=== PATIENT | female | born 1955 | race Caucasian/White ===

== ENCOUNTER 2017-08-17 15:11 | Inpatient (IN) | payer OTHER ==
[~2017-08-17] VITALS: Ht 165.1 cm; Wt 74.1 kg
[2017-08-17] VITALS (10 sets, daily range): BP systolic 110–162; BP diastolic 59–80; PULSE 89–100; RESP 10–18; Ht 165.1 cm; Wt 74.1 kg
[2017-08-17] MEDS: AMLODIPINE 5 MG TAB PO SCH (01:00)
[2017-08-17] MEDS: SENNA/DOCUSATE NA (8.6MG/50MG) TAB PO SCH (01:00)
[2017-08-17] MEDS: ATORVASTATIN 10 MG TAB PO SCH (01:00)
[~2017-08-17 15:11] MED LIST: ATROPINE 1 MG/10 ML SYRINGE IV PRN; DIPHENHYDRAMINE 50 MG INJ IV PRN; EPHEDrine SULFATE 50 MG/5 ML SYG IV PRN; FENTAnyl 50 MCG/ML VIAL IV PRN; HYDROmorphONE (0.2 MG/ML) 10ML SYG IV PRN; LABETALOL HCL 20MG INJ IV PRN; MEPERIDINE 25 MG INJ IV PRN; MIDAZOLAM 1 MG/ML 2 ML INJ IV PRN; ONDANSETRON 4 MG INJ IV PRN; OXYCODONE/ACETAMINOPHEN (5/325) TAB PO PRN; hydrALAzine 20 MG INJ IV PRN; morphine (1 MG/ML) 10ML SYRINGE IV PRN
[2017-08-17] MEDS ORDERED: MILN50TA PO (15:37)
[2017-08-17] MEDS ORDERED: METF1000 PO (15:37)
[2017-08-17] MEDS ORDERED: AMLO5TAB4 PO (15:37)
[2017-08-17] MEDS ORDERED: ATOR10TA65 PO (15:38)
[2017-08-17] MEDS ORDERED: CLON-379 PO (15:38)
[2017-08-17] MEDS ORDERED: OLAN5TAB5 PO (15:39)
[2017-08-17] MEDS ORDERED: TOPI50TA86 PO (15:39)
[2017-08-17] MEDS ORDERED: CLON-412 PO (15:40)
[2017-08-17] MEDS ORDERED: ZOLP10TA5 PO (15:40)
[2017-08-17] MEDS ORDERED: GELATIN SIZE 100 SPONGE ONE (16:31)
[2017-08-17] MEDS ORDERED: THROMBIN 5000 UNIT VIAL ONE (16:31)
[2017-08-17] MEDS ORDERED: CEFAZOLIN 1 GM INJ ONE ×2 (16:31→18:26)
[2017-08-17] MEDS ORDERED: HEPARIN 1000 UNITS/ML 10 ML INJ ONE (16:52)
--- NOTE | 2017-08-17 18:13 | HPN ---
Date/Time of Note Date/Time of Note DATE: 08/17/17 TIME: 18:13 Interval H&P Admission Note Pt. seen H&P reviewed: No system changes ENZO CARDOSO MD Aug 17, 2017 18:13
[2017-08-17] MEDS ORDERED: ROCURONIUM 50 MG INJ ONE (18:26)
[2017-08-17] MEDS ORDERED: NEOSTIGMINE 3 MG/3 ML SYRINGE ONE (18:26)
[2017-08-17] MEDS ORDERED: GLYCOPYRROLATE 0.4 MG INJ ONE (18:26)
[2017-08-17] MEDS ORDERED: MIDAZOLAM 1 MG/ML 2 ML INJ ONE (18:26)
[2017-08-17] MEDS ORDERED: ONDANSETRON 4 MG INJ ONE (18:26)
[2017-08-17] MEDS ORDERED: FENTAnyl 50 MCG/ML VIAL ONE ×4 (18:26→23:08)
[2017-08-17] MEDS ORDERED: PROPOFOL 20 ML ONE (18:26)
[2017-08-17] MEDS ORDERED: DEXAMETHASONE 4 MG/ML 1 ML INJ ONE (18:26)
[2017-08-17] MEDS ORDERED: clonAZEPAM 0.5 MG TAB PO PRN (18:30)
--- NOTE | 2017-08-17 18:32 | RADRPT ---
PROCEDURE: Portable chest x-ray. CLINICAL INDICATION: Preoperative chest x-ray. TECHNIQUE: Portable AP view of the chest. COMPARISON: None. FINDINGS: No pulmonary edema or conolidation is identified. The cardiac silhouette is magnified. There are ao rtic calcifications. No pleural effusion is seen. There is no pneumothorax. IMPRESSION: 1. No evidence of acute cardiopulmonary disease. 2. Aortic atherosclerosis. RPTAT: HTAR .Solo Gan MD, MD Date Time Electronically viewed and signed by .Solo Gan MD, on 08/17/2017 18:32 .R/
--- NOTE | 2017-08-17 19:19 | HP ---
Date/Time of Note Date/Time of Note DATE: 08/17/17 TIME: 19:16 Assessment/Plan VTE Prophylaxis VTE Prophylaxis Intervention: ambulation, anti-embolic stocking Lines/Catheters IV Catheter Type (from Nrsg): [place] line still needed: No Urinary Cath still in place: No Assessment/Plan Problems: (1) Lumbar stenosis with neurogenic claudication Status: Acute Comment: She went for elective laminectomy today by Dr. Gentile She is low risk for cardiac event perioperatively. (2) HTN (hypertension) Status: Chronic Comment: IV hydralazine for SBP>160 or DBP>110 home BP meds resumed Qualifiers: Hypertension type: essential hypertension Qualified Code: I10 - Essential hypertension (3) DM type 2 with diabetic dyslipidemia Status: Chronic Comment: Insulin sliding scale HbA1C repeated (4) Bipolar 1 disorder Status: Chronic Comment: Zyprexa resumed. Ativan given as needed (5) OA (osteoarthritis of the spine) Status: Chronic Comment: Pain management after surgery Qualifiers: Spinal region: lumbosacral (6) OA (osteoarthritis) of knee Status: Chronic Comment: PT/OT evaluation and treatment Qualifiers: Osteoarthritis type: primary Laterality: bilateral Qualified Code: M17.0 - Primary osteoarthritis of both knees HPI/ROS Admit Date/Time Admit Date/Time Aug 17, 2017 at 15:11 Hx of Present Illness This is a 61 years old [place] lady with significant medical illness of hypertension,type 2 diabetic mellitus with dyslipidemia,bipolar disorder , severe lumbar stenosis with significant claudication who was sent here today for elective anterior approach laminectomy . The back pain was radiated to both side of lower extremities. It was so severe that medication was not able to relieve the pain.. She has been in her usual status of melani. She denied any chest pain nor short of breath. No PND nor orthopnea. No abdominal pain nor N/ V. No headache nor blurred vision. No leg/arm weakness . No leg/arm numbness. No dysuria. ROS Constitutional: No chills, No diaphoresis, No disoriented, No fatigue, No febrile, No improved, No nausea, No other, No poor po, No weight change Eyes: No discharge, No other, No pain, No redness, No visual change ENT: No bleeding, No congestion, No discharge, No dysphagia, No no complaints, No other, No pain, No sore throat Respiratory: No cough, No no complaints, No other, No pain, No pleuritic pain, No shortness of breath, No sputum, No wheezing Cardiovascular: No chest pain, No edema, No lightheadedness, No no complaints, No orthopenea, No other, No palpitations, No paroxysmal nocturnal dyspnea Gastrointestinal: No blood, No constipation, No decreased appetite, No diarrhea , No flatus, No nausea, No no complaints, No other, No pain, No passing stool, No vomiting Genitourinary: No bleeding, No discharge, No dysuria, No flank pain, No hematuria, No no complaints, No other Musculoskeletal: back pain, restricted range of motion (of lumbarspine Strainght leg rasing test positive) Skin: No bruising, No erythema, No laceration, No no complaints, No other, No pruritis, No rash, No skin lesions Neurologic: No confusion, No dizziness, No focal-weakness, No headache, No no complaints, No other, No seizure, No syncope Endocrine: No dry skin, No no complaints, No other, No polydypsia, No polyuria , No temp intolerance, No weight change Lymphatic: No adenopathy, No lymphadema, No no complaints, No other, No tender nodes Psychological: No anxiety, No confusion, No depression, No nl mood/affect, No no complaints, No other, No suicidal Immunologic: No immunodeficiency, No no complaints, No other, No pruritis, No rhinitis, No urticaria PMH/Family/Social Past Medical History Medical History: diabetes (type 2 DM with dsylipidemia), hypertension, other ( OA of lumbar spine/knee,Bipolar disorder) Past Surgical History Past Surgical Hx: other (C Section twice, D&C) Family History Significant Family History: no pertinent family hx Social History Alcohol Use: none Smoking Status: Never smoker Drug Use: none Exam/Review of Systems Vital Signs Vitals Vital Signs Date Time Temp Pulse Resp B/P Pulse Ox O2 Delivery O2 Flow Rate FiO2 08/17/17 16:07 98.3 90 18 162/80 98 Room Air Exam Constitutional: alert, oriented, well developed, No distress, No frail, No non-verbal, No other Psych: nl mood/affect, No anxiety, No confusion, No depression, No no complaints, No other, No suicidal Head: atraumatic, normocephalic, No hematomas, No lacerations, No other Eyes: EOMI, nl conjunctiva, nl lids, nl sclera ENMT: mucosa pink and moist, nl external ears & nose, nl lips & teeth, nl nasal mucosa & septum Neck: non-tender, supple, No bruits, No jvd, No masses, No nuchal rigidity, No other, No thyromegaly Respiratory: clear to auscultation, normal air movement, No congested cough, No crackles/rales, No diminished breath sounds, No intercostal retraction, No labored breathing, No other, No respirations, No tactile fremitus, No wheezing Cardiovascular: nl pulses, regular rate and rhythm, No S3, No S4, No bruits, No diastolic murmur, No edema, No gallop, No irregular rhythm, No jugular venous distention (JVD), No murmurs/extra sounds, No other, No rub, No systolic murmur Gastrointestinal: nl liver, spleen, non-tender, soft, No ascites, No bowel sounds, No distended, No firm, No hepatomegaly, No mass , No other, No rebound or guarding, No splenomegaly, No surgical scars, No tender Musculoskeletal: nl extremities to inspection, nl gait and stance, range of motion (limitation of lumbar spine) Extremities: No calf tenderness, No clubbing, No cyanosis, No edema, No normal pulses, No other, No palpable cord, No pitting pedal edema, No tenderness Neurological: QUALITY IMPROVEMENT SPECIALIST II-XII intact, nl mental status, nl speech, nl strength, No DTR's symmetric, No confused, No focal weakness, No lethargic, No numbness , No other, No reflexes, No unresponsive Skin: nl turgor, rash or lesions, No diaphoresis, No ecchymosis, No laceration, No other, No puncture Lymph: nl lymph nodes, No enlarged, No nontender, No other Medications Medications Current Medications Amlodipine Besylate (Norvasc) 5 mg DAILY PO ; Start 08/18/17 at 09:00 Atorvastatin Calcium (Lipitor) 10 mg QHS PO ; Start 08/17/17 at 21:00 Olanzapine (Zyprexa) 5 mg QHS PO ; Start 08/17/17 at 21:00 Topiramate (Topamax) 50 mg QHS PO ; Start 08/17/17 at 21:00 Copies To: CC: BERE GALEANA NARUCHON MD Aug 17, 2017 19:19
[2017-08-17] MEDS ORDERED: hydrALAzine 20 MG INJ IV PRN ×2 (20:00→20:30)
[2017-08-17] MEDS ORDERED: GLUCOSE GEL 15 GRAM TUBE PO PRN ×2 (20:00)
[2017-08-17] MEDS ORDERED: GLUCOSE GEL 15 GRAM TUBE BUCCAL PRN (20:00)
[2017-08-17] MEDS ORDERED: MAGNESIUM HYDROXIDE 30ML CUP PO PRN (20:00)
[2017-08-17] MEDS ORDERED: GLUCAGON 1 MG INJ IM PRN (20:00)
[2017-08-17] MEDS ORDERED: DEXTROSE 50% 50 ML SYRINGE IV PRN ×2 (20:00)
[2017-08-17] MEDS ORDERED: hydrALAzine 20 MG INJ ONE (20:18)
[2017-08-17] MEDS ORDERED: LABETALOL HCL 20MG INJ ONE (20:29)
[2017-08-17] MEDS ORDERED: ALBUTEROL 0.083% (NEB) 2.5 MG/3 ML AMP HHN PRN (20:30)
[2017-08-17] MEDS ORDERED: TRIMETHOBENZAMIDE 100 MG/ML VIAL IM PRN (20:30)
[2017-08-17] MEDS ORDERED: MEPERIDINE 25 MG INJ IV PRN (20:30)
[2017-08-17] MEDS ORDERED: IPRATROPIUM (NEB) 0.5 MG/2.5 ML AMP HHN PRN (20:30)
[2017-08-17] MEDS ORDERED: HYDROmorphONE (0.2 MG/ML) 10ML SYG IV PRN ×2 (20:30)
[2017-08-17] MEDS ORDERED: OXYCODONE/ACETAMINOPHEN (5/325) TAB PO PRN ×2 (20:30)
[2017-08-17] MEDS ORDERED: LABETALOL HCL 20MG INJ IV PRN (20:30)
[2017-08-17] MEDS ORDERED: FENTAnyl 50 MCG/ML VIAL IV PRN ×3 (20:30)
[2017-08-17] MEDS ORDERED: MIDAZOLAM 1 MG/ML 2 ML INJ IV PRN (20:30)
[2017-08-17] MEDS ORDERED: DIPHENHYDRAMINE 50 MG INJ IV PRN (20:30)
[2017-08-17] MEDS ORDERED: ONDANSETRON 4 MG INJ IV PRN ×2 (20:30→23:00)
[2017-08-17] MEDS ORDERED: EPHEDrine SULFATE 50 MG/5 ML SYG IV PRN (20:30)
[2017-08-17] MEDS ORDERED: THROMBIN 5000 UNIT VIAL TOP ONE (20:47)
[2017-08-17] MEDS ORDERED: GELATIN SIZE 100 SPONGE TOP ONE (20:47)
[2017-08-17] MEDS ORDERED: OLANZAPINE 5 MG TAB PO SCH (21:00)
[2017-08-17] MEDS ORDERED: TOPIRAMATE 25 MG TAB PO SCH (21:00)
[2017-08-17] MEDS ORDERED: HEMOSTATIC MATRIX/ THROMBIN 1 EA SYG ZFS ONE ×2 (21:40→22:00)
[2017-08-17] MEDS ORDERED: SUGAMMADEX SODIUM 200 MG/2 ML VIAL IV ONE (22:25)
--- NOTE | 2017-08-17 22:37 | SIPON ---
Date/Time of Note Date/Time of Note DATE: 08/17/17 TIME: 22:34 Operative Report Preoperative Diagnosis 1) L4-5/L5-S1 severe DDD 2) L4-5 spondylolisthesis 3) L4-5/L5-S1 lateral recess/foraminal stenosis Postoperative Diagnosis Same as above Operation/Procedure Performed L4-5/L5-S1 ALIF (12mm 9deg lordotic [place] at L4-5, 12mm 14 deg lordotic at L5 -S1) Surgeon see signature line mechanic's assistant Cosurgeon: Julius Gentile Anesthesia: general Estimated blood loss: 100 - 150 ml's Transfusion Required none Specimen None Grafts/Implants See op report Complications none ENZO CARDOSO MD Aug 17, 2017 22:37
[2017-08-17] MEDS ORDERED: HYDROCODONE/APAP (10/325) TAB PO SCH (23:00)
[2017-08-17] MEDS ORDERED: BISACODYL 10 MG SUPP PR PRN (23:00)
[2017-08-17] MEDS ORDERED: NALOXONE (0.4 MG/ML) INJ IV PRN (23:00)
[2017-08-17] MEDS ORDERED: ALBUMIN HUMAN 5% 500 ML ONE (23:03)
--- NOTE | 2017-08-17 23:05 | RADRPT ---
PROCEDURE: XR Abdomen. CLINICAL INDICATION: Abdominal pain. TECHNIQUE: 2 frontal views of the abdomen. COMPARISON: None. FINDINGS: There is a nasogastric tube extending to the stomach. An esophageal probe is present. There is a lef t basilar chest tube present. There is mild left basilar atelectasis. The bowel gas pattern is unrem arkable. There is no bowel obstruction or free air. There is no organomegaly. There is no abnorma l calcification. There are postsurgical changes with interbody fusion at L4-L5 and L5-S1. IMPRESSION: Unremarkable bowel gas pattern. Nasogastric tube in place. .Damien Gilbert MD, MD Date Time Electronically viewed and signed by .Damien Gilbert MD, on 08/17/2017 23:04 .T/
[2017-08-17] MEDS: HYDROmorphONE (0.2 MG/ML) 10ML SYG IV PRN ×4 (23:17→23:47)
[2017-08-18] VITALS (7 sets, daily range): BP systolic 134–145; BP diastolic 62–75; PULSE 75–96; RESP 15–21
[2017-08-18] MEDS: 1/2 NS + KCL 20 MEQ 1,000 ML IV SCH ×2 (01:07→11:00)
[2017-08-18] MEDS: CEFAZOLIN 1 GM/50 ML (PMX) 50 ML IVPB SCH ×3 (01:07→16:39)
[2017-08-18] MEDS: HYDROCODONE/APAP (10/325) TAB PO SCH ×4 (01:07→17:52)
[2017-08-18] MEDS: HYDROmorphONE 0.5 MG/0.5 ML SYG IV PRN ×3 (01:26→03:20)
[2017-08-18] MEDS: CYCLOBENZAPRINE 10 MG TAB PO PRN ×2 (02:17→18:57)
[2017-08-18] MEDS: HYDROmorphONE 1 MG/ML SYG IV PRN ×3 (04:31→08:29)
[2017-08-18 06:01] LABS: BASOPHILS % 0.1 % (0.0-2.0); HEMATOCRIT 31.6 % (37.0-47.0); HEMOGLOBIN 9.9 g/dl (12.0-16.0); LYMPHOCYTES # 0.6 10^3/ul (0.8-2.9); LYMPHOCYTES % 4.9 % (15.0-51.0); MEAN CORPUSCULAR HEMOGLOBIN 26.3 pg (29.0-33.0); MEAN CORPUSCULAR HGB CONC 31.3 g/dl (32.0-37.0); MEAN PLATELET VOLUME 10.1 fl (7.4-10.4); MONOCYTE # 0.4 10^3/ul (0.3-0.9); MONOCYTES % 3.3 % (0.0-11.0); NEUTROPHIL # 11.7 10^3/ul (1.6-7.5); NEUTROPHILS % 90.7 % (39.0-77.0); PLATELET COUNT 390 10^3/UL (140-415); RED BLOOD COUNT 3.76 10^6/ul (4.20-5.40); RED CELL DISTRIBUTION WIDTH 15.6 % (11.5-14.5); WHITE BLOOD COUNT 12.9 10^3/ul (4.8-10.8)
--- NOTE | 2017-08-18 06:25 | OPR ---
DATE OF OPERATION: PREOPERATIVE DIAGNOSIS: Degenerative disk disease, lumbosacral spine. POSTOPERATIVE DIAGNOSIS: Degenerative disk disease, lumbosacral spine. PROCEDURES: 1. Anterior retroperitoneal exposure interbody fusion L4-L5. 2. Anterior retroperitoneal exposure interbody fusion L5-S1. SURGEON: Harpreet Gentile MD. CO-SURGEON: Kt Gee. INFORMED CONSENT: Risks, benefits, complications, alternative therapies, high-risk nature of the op eration were fully explained to the patient and the family, consent obtained. OPERATIVE TECHNIQUE: The patient was placed in supine position, prepped and draped in usual sterile fashion. Time-out was called, antibiotic was given. I made a 10 cm incision in left lower quadran t, oblique fashion. Incision was taken down to the subcutaneous tissue which was then opened using electrocautery. Left anterior rectus sheath was opened in the direction of the wound. The posterio r rectus sheath was incised superiorly about 3 cm. Bookwalter retractor was placed retracting the b owel contents to the right and left rectus muscle to left. I ligated the left iliolumbar vein left segmental vessels and the middle sacral vessels exposure for L5-S1 was obtained between the right an d left common iliac artery and vein. Exposure for L4-L5 was obtained by retracting the vena cava an d aorta to the right. We placed cages which were all read by Dr. Gee. All needle counts and spon ge count was correct. The wound was irrigated using antibiotic solution. ____ rectus sheath was cl osed using an 0 Vicryl suture in running fashion. Anterior rectus sheath was closed using a #1 Vicr yl suture in running fashion, interrupted sutures in the middle. The wound was irrigated and closed in 2 layers of 2-0 Vicryl suture for subcutaneous and Steri-Strips for the skin. Patient had a str ella thrill. The patient had a strong pulse in the left common and external iliac artery at the conc lusion of the operation. No evidence of any major bleeding. ESTIMATED BLOOD LOSS: 150 mL. ANESTHESIA: General. Dictated By: HARPREET VERDIN/NTS Conf#: [id number] DID#: [id number]
--- NOTE | 2017-08-18 07:04 | RADRPT ---
PROCEDURE: XR Lumbar Spine. CLINICAL INDICATION: Intraoperative L5-S1 anterior interbody fusion TECHNIQUE: 11 views of the lumbar spine were performed. The images were reviewed on a PACS worksta tion. Site of service: Inpatient Fluoro Time : 31.3 seconds Radiation Dose: 16.62 mGy Number of Images: 11 COMPARISON: No relevant priors available FINDINGS: 11 intraoperative x-rays of the lumbar spine are available for review. Surgical hardware seen and t he patient is status post anterior discectomy and intervertebral disc spacer placement and fusion at the L4-5 and L5-S1 levels. Intact hardware and gross anatomic alignment is present. Images were obt ained for localization during the procedure in progress. 31.3 seconds of fluoroscopy time was utiliz ed for the procedure. Procedure was performed by Dr. Gee. IMPRESSION: 1. Status post anterior discectomy and intervertebral interbody fusion with intervertebral disc spa cers at the L4-5 and L5-S1 levels. 2. Please refer to operative report for greater detail RPTAT: HDC .Letitia Joyner MD, MD Date Time Electronically viewed and signed by .Letitia Joyner MD, on 08/18/2017 07:04 .C/
[2017-08-18 07:13] LABS: CALCIUM 9.4 mg/dl (8.4-10.2); CREATININE 0.49 mg/dl (0.44-1.00); POTASSIUM 3.9 mmol/L (3.5-5.1)
[2017-08-18] MEDS ORDERED: INSULIN ASPART [NOVOLOG] 3 ML PEN SC SCH (07:50)
[2017-08-18] MEDS ORDERED: clonAZEPAM 0.5 MG TAB PO PRN (08:00)
[2017-08-18] MEDS: AMLODIPINE 5 MG TAB PO SCH ×2 (08:35→21:17)
[2017-08-18] MEDS: DOCUSATE SODIUM 100 MG CAP PO SCH ×2 (08:36→21:17)
[2017-08-18] MEDS: SENNA/DOCUSATE NA (8.6MG/50MG) TAB PO SCH ×2 (08:36→21:16)
[2017-08-18] MEDS ORDERED: FAMOTIDINE 20 MG TAB PO SCH (09:00)
[2017-08-18] MEDS ORDERED: oxyCODONE (CR) 10 MG TAB [oxyCONTIN] PO SCH (09:00)
[2017-08-18] MEDS ORDERED: AMLODIPINE 5 MG TAB PO SCH (09:00)
[2017-08-18] MEDS ORDERED: MILNACIPRAN HCL 50 MG XX SCH (09:00)
[2017-08-18] MEDS ORDERED: oxyCODONE 5 MG TAB ONE (09:23)
[2017-08-18] MEDS: metFORMIN 500 MG TAB PO SCH ×2 (09:29→17:52)
[2017-08-18] MEDS: oxyCODONE 5 MG TAB PO SCH ×4 (09:29→21:26)
--- NOTE | 2017-08-18 11:37 | PN ---
Date/Time of Note Date/Time of Note DATE: 08/18/17 TIME: 11:37 Assessment/Plan VTE Prophylaxis VTE Prophylaxis Intervention: SCD's Lines/Catheters IV Catheter Type (from Nrsg): Peripheral IV Urinary Cath still in place: Yes Reason Cath still needed: other (indicate) (To be discontinued today) Assessment/Plan Assessment/Plan 61-year-old female with: 1. Lumbar spine degenerative disc disease, status post Anterior retroperitoneal exposure interbody fusion L4-L5. POD#1 DC IV fluids, DC Lopez catheter. Pain control, encourage ambulation. Discharge planning in the next 24 hours. 2. Diabetes mellitus, on metformin. Patient's metformin will be resumed once tolerating p.o. better, sliding scale insulin to be continued along with ADA diet. 3. Bipolar disorder: Continue outpatient medications 4. Chronic pain/fibromyalgia. Pain regimen has been adjusted by neurosurgery, Dr. Gee overnight. Pain seems to be better controlled this morning. Continue bowel regimen. 5. Hypertension: Resume home medications. Pain control, hydralazine as needed. Prophylaxis: SCDs to lower extremity for DVT prophylaxis, Pepcid for GI prophylaxis Disposition: Discussed with Dr. Gee from neurosurgery, patient to be discharged hopefully in a.m. on postoperative day #2 Subjective 24 Hr Interval Summary Free Text/Dictation Patient ambulating 200 feet, she is on the phone speaking to friends, is having some pain and will ask for pain medication, I have encouraged her to continue ambulation and also she is tolerating p.o. therefore will be advanced in terms of her diet. We will continue to monitor overnight, discharge planning for tomorrow if remains stable. Discontinue Lopez catheter. Exam/Review of Systems Vital Signs Vitals Vital Signs Date Time Temp Pulse Resp B/P Pulse Ox O2 Delivery O2 Flow Rate FiO2 08/18/17 08:48 98.2 75 18 139/75 100 08/18/17 05:35 Nasal Cannula 2.0 Intake and Output 08/17/17 08/17/17 08/18/17 15:00 23:00 07:00 Intake Total 550 ml 500 ml Output Total 700 ml 2500 ml Balance -150 ml -2000 ml Exam Constitutional: alert, oriented, well developed Respiratory: clear to auscultation, normal air movement Cardiovascular: nl pulses, regular rate and rhythm Musculoskeletal: nl extremities to inspection, nl gait and stance Extremities: normal pulses, other (No edema, clubbing or cyanosis) Neurological: TRAUMA COUNSELLOR II-XII intact, nl mental status, nl speech, other (Improving generalized weakness, patient ambulatory.) Results Result Diagram: 08/18/17 0520 08/18/17 0521 Results 24 hrs Laboratory Tests Test 08/17/17 15:53 08/17/17 23:16 08/18/17 05:20 08/18/17 05:21 Bedside Glucose 104 150 White Blood Count 12.9 H Red Blood Count 3.76 L Hemoglobin 9.9 L Hematocrit 31.6 L Mean Corpuscular Volume 84.0 Mean Corpuscular Hemoglobin 26.3 L Mean Corpuscular Hemoglobin Concent 31.3 L Red Cell Distribution Width 15.6 H Platelet Count 390 Mean Platelet Volume 10.1 Neutrophils % 90.7 H Lymphocytes % 4.9 L Monocytes % 3.3 Eosinophils % 0.0 Basophils % 0.1 Nucleated Red Blood Cells % 0.0 Neutrophils # 11.7 H Lymphocytes # 0.6 L Monocytes # 0.4 Eosinophils # 0.0 Basophils # 0.0 Nucleated Red Blood Cells # 0.0 Sodium Level 141 Potassium Level 3.9 Chloride Level 104 Carbon Dioxide Level 22 Anion Gap 19 H Blood Urea Nitrogen 7 Creatinine 0.49 Glucose Level 148 Calcium Level 9.4 Test 08/18/17 09:27 Bedside Glucose 170 Medications Medications Current Medications Atorvastatin Calcium (Lipitor) 10 mg QHS PO ; Start 08/17/17 at 21:00 Amlodipine Besylate (Norvasc) 5 mg BID PO Last administered on 08/18/17 08:35 ; Admin Dose 5 MG; Start 08/17/17 at 21:00 Hydralazine HCl (Apresoline) 10 mg Q4H PRN IV blood pressure; Start 08/17/17 at 20:00 Senna/Docusate Sodium (Senokot-S) 2 tab BID PO Last administered on 08/18/17 08:36; Admin Dose 2 TAB; Start 08/17/17 at 21:00 Magnesium Hydroxide (Milk Of Mag) 30 ml DAILY PRN PO CONSTIPATION; Start 08/17 at 20:00 Miscellaneous Information 1 ea NOTE XX ; Start 08/17/17 at 20:00 Glucose (Glutose) 15 gm Q15M PRN PO DECREASED GLUCOSE; Start 08/17/17 at 20:00 Glucose (Glutose) 22.5 gm Q15M PRN PO DECREASED GLUCOSE; Start 08/17/17 at 20: 00 Glucagon (Glucagen) 1 mg Q15M PRN IM DECREASED GLUCOSE; Start 08/17/17 at 20: 00 Glucose (Glutose) 15 gm Q15M PRN BUCCAL DECREASED GLUCOSE; Start 08/17/17 at 20:00 Clonidine (Catapres) 0.1 mg Q8 PRN PO ELEVATED BLOOD PRESSURE; Start 08/17/17 at 23:00 Miscellaneous Information 50 mg 50 mg BID PO ; Start 08/18/17 at 09:00; Status UNV Potassium Chloride/Sodium Chloride 1,000 ml @ 100 mls/hr Q10H IV Last administered on 08/18/17 01:07; Admin Dose 100 MLS/HR; Start 08/18/17 at 01: 00 Cefazolin Sodium (Ancef 1 Gm/50 ml (Pmx)) 50 ml @ 100 mls/hr Q8H IVPB Last administered on 08/18/17 08:32; Admin Dose 100 MLS/HR; Start 08/18/17 at 01: 00; Stop 08/18/17 at 17:29 Ondansetron HCl (Zofran Inj) 4 mg Q6H PRN IV NAUSEA AND/OR VOMITING; Start at 23:00 Bisacodyl (Dulcolax Supp) 10 mg DAILY PRN SC CONSTIPATION; Start 08/17/17 at 23:00 Docusate Sodium (Colace) 100 mg BID PO Last administered on 08/18/17 08:36; Admin Dose 100 MG; Start 08/18/17 at 09:00 Cyclobenzaprine HCl (Flexeril) 10 mg TID PRN PO MUSCLE SPASMS Last administered on 08/18/17 02:17; Admin Dose 10 MG; Start 08/17/17 at 23:00 Naloxone HCl (Narcan) 0.2 mg Q2M PRN IV RR 8 BREATHS/MIN OR LESS; Start at 23:00 Acetaminophen/ Hydrocodone Bitart ([place] (10/325)) 2 tab Q6H PO Last administered on 08/18/17 06:09; Admin Dose 2 TAB; Start 08/18/17 at 01:00 Hydromorphone HCl (Dilaudid) 1 mg Q2H PRN IV BREAKTHROUGH PAIN Last administered on 08/18/17 08:29; Admin Dose 1 MG; Start 08/18/17 at 04:05 Clonazepam (Klonopin) 0.5 mg Q6 PRN PO ANXIETY Last administered on 08/18/17 11:29; Admin Dose 0.5 MG; Start 08/18/17 at 08:00 Oxycodone HCl (Roxicodone) 5 mg Q4 PO Last administered on 08/18/17 09:29; Admin Dose 5 MG; Start 08/18/17 at 09:00 BERE GALEANA Aug 18, 2017 11:37
[2017-08-18] MEDS: INSULIN ASPART [NOVOLOG] 3 ML PEN SC SCH ×3 (12:54→21:00)
--- NOTE | 2017-08-18 13:20 | OPR ---
Date/Time of Note Date/Time of Note DATE: 08/18/17 TIME: 13:18 Operative Report Preoperative Diagnosis 1) L4-5/L5-S1 severe DDD 2) L4-5 spondylolisthesis 3) L4-5/L5-S1 lateral recess/foraminal stenosis Postoperative Diagnosis 1) L4-5/L5-S1 severe DDD 2) L4-5 spondylolisthesis 3) L4-5/L5-S1 lateral recess/foraminal stenosis Operation/Procedure Performed 1. L4-L5 and L5-S1 total anterior discectomy and spinal decompression 2. Placement of intervertebral cages at L4-L5 and L5-S1 (Aesculap Arcadius ALIF 12 mm height, 9 lordotic cage at L4-L5, 12 mm height 14 lordotic cage at L5-S1) 3. L4-L5 and L5-S1 anterior interbody arthrodesis 4. L4-L5 and L5-S1 anterior instrumentation (Aesculap Arcadius incroporated plates and screws) 5. Morcellized local autologous bone graft harvest 6. Morcellized allograft (demineralized bone matrix putty) 7. Intraoperative fluoroscopy with professional interpretation 8. Intraoperative neurophysiologic monitoring including SSEP, MEP and EMG Surgeon see signature line [employer] Tower Dispatcher Julius Gentile Anesthesia Type: general Estimated Blood Loss: 100 - 150 ml's Transfusion none Specimen None Grafts/Implants none Tubes/Drains None Complications none Pt Condition Post Procedure: stable Disposition: PACU Indications See below Procedure Description Date of surgery: 08/17/2017 Preoperative diagnosis: 1) L4-5/L5-S1 severe DDD 2) L4-5 spondylolisthesis 3) L4-5/L5-S1 lateral recess/foraminal stenosis Presented diagnoses: Same as above Operating surgeon: Enzo Cardoso M.D. Co-surgeon: Julius Gentile M.D. Procedure performed: 1. L4-L5 and L5-S1 total anterior discectomy and spinal decompression 2. Placement of intervertebral cages at L4-L5 and L5-S1 (Aesculap Arcadius ALIF 12 mm height, 9 lordotic cage at L4-L5, 12 mm height 14 lordotic cage at L5-S1) 3. L4-L5 and L5-S1 anterior interbody arthrodesis 4. L4-L5 and L5-S1 anterior instrumentation (Aesculap Arcadius incroporated plates and screws) 5. Morcellized local autologous bone graft harvest 6. Morcellized allograft (demineralized bone matrix putty) 7. Intraoperative fluoroscopy with professional interpretation 8. Intraoperative neurophysiologic monitoring including SSEP, MEP and EMG Indication for procedure: This is a 61-year-old female with long-standing history of progressively increasing severe axial low back pain and to a lesser degree bilateral lower extremity radiating pain, numbness and cramping that is worsened with standing and walking. The patient now either uses a front wheel walker or a cane to help her ambulate and her ambulation is now severely limited secondary to the above symptoms. She has also undergone extensive physical therapy as well as interventional pain management including various injections without significant improvement. She was found to have the above image findings studies and the risks and benefits of the above operation were explained in great detail to the patient, her and her 2 daughters both in the clinic setting as well as in the preoperative area. He was also explained that at this point we will plan on proceeding with anterior instrumented fusion only given the fact that the patient is not a current smoker and her bone density study showed osteopenia only. However, it is possible that the patient may develop pseudoarthrosis or failure of the anterior hardware and may require posterior instrumented fusion in the future. The risks and benefits of the above operation were also explained again in great detail to the patient and her family at bedside and they all agree to undergo the above surgery. The patient and her family also understand that it is very possible that she may still have residual or significant pain remaining even with the above surgery especially in light of the fact that she has had a preoperative diagnosis of fibromyalgia and controlling her pain has remained quite challenging up until now. Description of operative procedure: The patient was brought to the operating room and placed supine on the operating table. After general anesthesia was obtained, the patient's arms were then abducted less than 90 to her sides. All pressure points were noted and padded appropriately. The anterior access surgeon, Dr. Gentile marked a linear vertical incision over the left paramedian left lower quadrant abdominal area. The incision and the approach to the anterior lumbar spine will be dictated in a separate operative report by the access surgeon. Once the anterior lumbar spine was exposed and the surrounding soft tissue including the great vessels were retracted away from the spine, L4-L5 and L5-S1 levels were confirmed under direct lateral fluoroscopy. Attention was first paid to the L4-L5 level. The patient's preop L4-L5 spondylolisthesis was already partially reduced with positioning. The annulus was then cut open. There was severe disc collapse and degenerative changes within the L4-L5 level. There appeared to be very little disc material within the hollow L4-L5 disc space consistent with the vacuum phenomenon noted on the patient's preoperative imaging studies. Complete anterior discectomy was done. Paddle Distractors of increasing heights were then serially inserted to help distract the very mobile and grossly unstable L4-L5 disc space all the way to 12 mm with minimal resistance. Care was taken not to injure the endplates. The posterior longitudinal ligament was reached. And no further disc material or compression was noted posteriorly. The endplates were completely decorticated. The disc space was copiously irrigated with antibiotic solution. Serial wide Aesculap Arcadius ALIF trials were inserted under direct lateral fluoroscopy all the way to 12 mm height achieving excellent distraction and reduction at this level. We then decided to proceed with a 12 mm high, 9 mm lordotic ALIF cage. The cage was then packed with a combination of locally harvested morcellized autologous bone graft during the decompression and removal of osteophytes together with demineralized bone matrix allograft putty. The cage was then inserted under direct lateral fluoroscopy and slightly countersunk. The vertebral bodies within cannulated along the built-in screw holes within the cage using an awl instrument. Screws were then inserted under direct lateral fluoroscopy and fully tightened achieving excellent purchase and near total reduction of the spondylolisthesis. The same set of procedures was done to access the L5-S1 level anteriorly. The amount of degenerative changes and disc collapse was even more severe at L5-S1 level where the disc space initially was approximately 2 mm in height. Once complete discectomy and decompression of the spinal canal was done via anterior approach, the endplates were decorticated after the disc space was further mobilized and distracted using serial paddle distractors. The disc space was copiously irrigated with antibiotic solution. After using various trial sizer, we decided to use a 12 mm height, 14 mm lordotic ALIF cage packed with the same combination of biologic material. L5-S1 disc space was also distracted very well with minimal resistance. The screws were also inserted at this level stabilizing the cage to the L5 and S1 vertebral bodies with excellent purchase. Complete hemostasis was obtained. The closure of the wound will also be dictated in a separate operative report by the access surgeon. The patient was then woken up, extubated and transferred to the recovery room in stable condition. Estimated blood loss: 150 cc Incision: Left paramedian lower quadrant abdomen Skin closure: Steri-Strips Patient condition: Stable Prognosis: Good Wound classification: Clean Specimen removed: None Packs/drains: None Type of anesthesia: Gen. ENZO CARDOSO MD Aug 18, 2017 13:20
[2017-08-18] MEDS: ATORVASTATIN 10 MG TAB PO SCH (21:15)
[2017-08-18] MEDS ORDERED: ZOLPIDEM 5 MG TAB PO PRN (22:00)
[2017-08-19] MEDS: HYDROCODONE/APAP (10/325) TAB PO SCH ×3 (01:08→13:16)
[2017-08-19] MEDS: oxyCODONE 5 MG TAB PO SCH ×3 (02:07→09:13)
[2017-08-19 05:17] LABS: BASOPHILS % 0.3 % (0.0-2.0); EOSINOPHILS % 0.2 % (0.0-7.0); HEMATOCRIT 31.1 % (37.0-47.0); HEMOGLOBIN 9.8 g/dl (12.0-16.0); LYMPHOCYTES % 16.5 % (15.0-51.0); MEAN CORPUSCULAR HEMOGLOBIN 26.3 pg (29.0-33.0); MEAN CORPUSCULAR HGB CONC 31.5 g/dl (32.0-37.0); MEAN CORPUSCULAR VOLUME 83.4 fl (82.0-101.0); MEAN PLATELET VOLUME 10.3 fl (7.4-10.4); MONOCYTES % 8.7 % (0.0-11.0); NEUTROPHIL # 8.7 10^3/ul (1.6-7.5); NEUTROPHILS % 73.7 % (39.0-77.0); PLATELET COUNT 382 10^3/UL (140-415); RED BLOOD COUNT 3.73 10^6/ul (4.20-5.40); RED CELL DISTRIBUTION WIDTH 15.4 % (11.5-14.5); WHITE BLOOD COUNT 11.9 10^3/ul (4.8-10.8)
[2017-08-19 05:46] LABS: MAGNESIUM 1.5 mg/dl (1.7-2.5); PHOSPHORUS 3.1 mg/dl (2.5-4.9)
[2017-08-19 05:47] LABS: CALCIUM 10.4 mg/dl (8.4-10.2); CREATININE 0.55 mg/dl (0.44-1.00); POTASSIUM 3.5 mmol/L (3.5-5.1)
[2017-08-19] MEDS: INSULIN ASPART [NOVOLOG] 3 ML PEN SC SCH ×2 (07:50→11:40)
[2017-08-19 07:56] VITALS: BP 143/69; RESP 20
[2017-08-19] MEDS: AMLODIPINE 5 MG TAB PO SCH (09:13)
[2017-08-19] MEDS: DOCUSATE SODIUM 100 MG CAP PO SCH (09:13)
[2017-08-19] MEDS: SENNA/DOCUSATE NA (8.6MG/50MG) TAB PO SCH (09:13)
[2017-08-19] MEDS: metFORMIN 500 MG TAB PO SCH (09:13)
[2017-08-19] MEDS ORDERED: HYDROmorphONE 2 MG TAB PO PRN (11:34)
[2017-08-19] MEDS ORDERED: POTASSIUM CHLORIDE (SR) 20 MEQ TAB PO STA (13:18)
--- NOTE | 2017-08-19 13:28 | PN ---
Date/Time of Note Date/Time of Note DATE: 08/19/17 TIME: 13:18 Assessment/Plan VTE Prophylaxis VTE Prophylaxis Intervention: SCD's Lines/Catheters IV Catheter Type (from Nrs): Saline Lock Urinary Cath still in place: No Assessment/Plan Assessment/Plan 61-year-old female with: 1. Lumbar spine degenerative disc disease, status post Anterior retroperitoneal exposure interbody fusion L4-L5. POD#2 Doing well. Discharge home with oral pain medication, home health PT. She is requesting a new walker. 2. Diabetes mellitus, resume metformin at discharge. 3. Bipolar disorder: Continue outpatient medications 4. Chronic pain/fibromyalgia. Oral pain medication at discharge along with bowel regimen. 5. Hypertension: Resume home medications. Prophylaxis: SCDs to lower extremity for DVT prophylaxis, Pepcid for GI prophylaxis Disposition: Discussed with Dr. Gee from neurosurgery, vaay to discharge patient home today with home health PT and outpatient follow-up with Dr. Gee in 7-10 days. Subjective 24 Hr Interval Summary Free Text/Dictation Patient doing much better, ambulating, she wants a new 4 wheeled walker more steady from home. Otherwise she is doing well, Dr. Gee have seen her last night and agreeable with discharge home today. Exam/Review of Systems Vital Signs Vitals Vital Signs Date Time Temp Pulse Resp B/P Pulse Ox O2 Delivery O2 Flow Rate FiO2 08/19/17 07:56 99.6 103 20 143/69 97 08/18/17 05:35 Nasal Cannula 2.0 Intake and Output 08/18/17 08/18/17 08/19/17 15:00 23:00 07:00 Intake Total 750 ml 850 ml 800 ml Output Total 900 ml Balance 750 ml -50 ml 800 ml Exam Constitutional: alert, oriented, well developed Cardiovascular: nl pulses, regular rate and rhythm Gastrointestinal: soft Musculoskeletal: nl extremities to inspection Extremities: normal pulses, other (No edema, clubbing or cyanosis) Neurological: CRYSTAL INSPECTOR II-XII intact, nl mental status, nl speech, other (Strength keep improving) Results Result Diagram: 08/19/17 0436 08/19/17 0436 Results 24 hrs Laboratory Tests Test 08/18/17 17:50 08/18/17 21:13 08/19/17 01:11 08/19/17 04:36 Bedside Glucose 126 119 123 White Blood Count 11.9 H Red Blood Count 3.73 L Hemoglobin 9.8 L Hematocrit 31.1 L Mean Corpuscular Volume 83.4 Mean Corpuscular Hemoglobin 26.3 L Mean Corpuscular Hemoglobin Concent 31.5 L Red Cell Distribution Width 15.4 H Platelet Count 382 Mean Platelet Volume 10.3 Neutrophils % 73.7 Lymphocytes % 16.5 Monocytes % 8.7 Eosinophils % 0.2 Basophils % 0.3 Nucleated Red Blood Cells % 0.0 Neutrophils # 8.7 H Lymphocytes # 2.0 Monocytes # 1.0 H Eosinophils # 0.0 Basophils # 0.0 Nucleated Red Blood Cells # 0.0 Sodium Level 136 Potassium Level 3.5 Chloride Level 102 Carbon Dioxide Level 22 Anion Gap 16 Blood Urea Nitrogen 5 L Creatinine 0.55 Glucose Level 125 Calcium Level 10.4 H Phosphorus Level 3.1 Magnesium Level 1.5 L Test 08/19/17 08:39 08/19/17 12:40 Bedside Glucose 126 120 Medications Medications Current Medications Atorvastatin Calcium (Lipitor) 10 mg QHS PO Last administered on 08/18/17 21: 15; Admin Dose 10 MG; Start 08/17/17 at 21:00 Amlodipine Besylate (Norvasc) 5 mg BID PO Last administered on 08/19/17 09:13 ; Admin Dose 5 MG; Start 08/17/17 at 21:00 Hydralazine HCl (Apresoline) 10 mg Q4H PRN IV blood pressure; Start 08/17/17 at 20:00 Senna/Docusate Sodium (Senokot-S) 2 tab BID PO Last administered on 08/19/17 09:13; Admin Dose 2 TAB; Start 08/17/17 at 21:00 Magnesium Hydroxide (Milk Of Mag) 30 ml DAILY PRN PO CONSTIPATION; Start 08/17 at 20:00 Miscellaneous Information 1 ea NOTE XX ; Start 08/17/17 at 20:00 Glucose (Glutose) 15 gm Q15M PRN PO DECREASED GLUCOSE; Start 08/17/17 at 20:00 Glucose (Glutose) 22.5 gm Q15M PRN PO DECREASED GLUCOSE; Start 08/17/17 at 20: 00 Glucagon (Glucagen) 1 mg Q15M PRN IM DECREASED GLUCOSE; Start 08/17/17 at 20: 00 Glucose (Glutose) 15 gm Q15M PRN BUCCAL DECREASED GLUCOSE; Start 08/17/17 at 20:00 Clonidine (Catapres) 0.1 mg Q8 PRN PO ELEVATED BLOOD PRESSURE; Start 08/17/17 at 23:00 Miscellaneous Information 50 mg BID PO ; Start 08/18/17 at 09:00; Status UNV Ondansetron HCl (Zofran Inj) 4 mg Q6H PRN IV NAUSEA AND/OR VOMITING; Start at 23:00 Bisacodyl (Dulcolax Supp) 10 mg DAILY PRN MD CONSTIPATION; Start 08/17/17 at 23:00 Docusate Sodium (Colace) 100 mg BID PO Last administered on 08/19/17 09:13; Admin Dose 100 MG; Start 08/18/17 at 09:00 Cyclobenzaprine HCl (Flexeril) 10 mg TID PRN PO MUSCLE SPASMS Last administered on 08/18/17 18:57; Admin Dose 10 MG; Start 08/17/17 at 23:00 Naloxone HCl (Narcan) 0.2 mg Q2M PRN IV RR 8 BREATHS/MIN OR LESS; Start at 23:00 Acetaminophen/ Hydrocodone Bitart ([place] (10/325)) 2 tab Q6H PO Last administered on 08/19/17 13:16; Admin Dose 2 TAB; Start 08/18/17 at 01:00 Clonazepam (Klonopin) 0.5 mg Q6 PRN PO ANXIETY Last administered on 08/18/17 11:29; Admin Dose 0.5 MG; Start 08/18/17 at 08:00 Oxycodone HCl (Roxicodone) 5 mg Q4 PO Last administered on 08/19/17 09:13; Admin Dose 5 MG; Start 08/18/17 at 09:00 Zolpidem Tartrate (Ambien) 10 mg HS PRN PO INSOMNIA Last administered on 22:18; Admin Dose 10 MG; Start 08/18/17 at 22:00 Hydromorphone HCl (Dilaudid) 4 mg Q2H PRN PO BREAKTHROUGH PAIN; Start at 11:34 BERE GALEANA Aug 19, 2017 13:28
--- NOTE | 2017-08-19 13:29 | PDOCDIS ---
Discharge Instructions CONDITION Patient Condition: Stable HOME CARE INSTRUCTIONS: Special Diet: ADA diet ACTIVITY: Activity Restrictions: Slowly Increase Activity FOLLOW UP/APPOINTMENTS Follow-up Plan Follow-up with primary care physician within 1-2 weeks Follow-up with Dr. Gee within 7-10 days Forward wheel walker for home Home health PT and RN at home BERE GALEANA Aug 19, 2017 13:29
[2017-08-19] MEDS ORDERED: CYCL-319 PO (13:35)
[2017-08-19] MEDS ORDERED: DOCU-216 PO (13:35)
[2017-08-19] MEDS ORDERED: Hydrocodone/Apap (10/325) PO (13:35)
--- NOTE | 2017-08-19 23:13 | PN ---
Date/Time of Note Date/Time of Note DATE: 08/18/17 TIME: 22:00 Assessment/Plan VTE Prophylaxis VTE Prophylaxis Intervention: ambulation, SCD's Lines/Catheters IV Catheter Type (from Nrsg): Saline Lock Urinary Cath still in place: No Assessment/Plan Assessment/Plan Date of progress note: 08/18/2017 The patient is postop day 1 status post L4-L5, L5-S1 ALIF. The patient's postop pain is a lot better managed today and the patient seems to be comfortable. She has already gotten out of bed and did some walking with physical therapy. Lopez catheter has been removed. She has had a few sips of clears. Her abdominal incision is clean dry and intact. Her abdomen is soft. She has not had any bowel movements yet. She has not had flatus yet. She moves her upper and lower extremities equally bilaterally. The patient's preop radiating bilateral lower extremity has decreased. I have given the patient detailed instructions about postoperative care. Her LSO brace will be put on the patient as soon as is available. She is to avoid the use of nonsteroidal anti-inflammatory drugs for the next 4 months as a can interfere with fusion. The patient can shower starting tomorrow. She is to keep the incision clean dry and intact. The dressing can be removed in the next 3-4 days. She will call my office to schedule a follow-up appointment for the next 2-3 weeks. Her diet will be slowly advanced to ADA diet tomorrow. I have also discussed the patient's anticipated discharge planning for tomorrow with Dr. [place]. ENZO CARDOSO MD Aug 19, 2017 23:13
== END 2017-08-19 17:50 | disposition home or self-care (01) | DRG 460 ==
LOC: REC 15:11 → MS1 08-18 00:56
PROVIDERS: ADMIT Neurological Surgery; ATTEND Neurological Surgery
PROC: 0SG30A0 Fusion of Lumbosacral Joint with Interbody Fusion Device, Anterior Approach, Anterior Column, Open Approach (ICD-10-PCS; 2017-08-17)
PROC: 0ST40ZZ Resection of Lumbosacral Disc, Open Approach (ICD-10-PCS; principal; 2017-08-17 17:00)
DX: M51.37 Other intervertebral disc degeneration, lumbosacral region (principal); I10 Essential (primary) hypertension; E11.9 Type 2 diabetes mellitus without complications; M43.16 Spondylolisthesis, lumbar region; F31.9 Bipolar disorder, unspecified; M17.10 Unilateral primary osteoarthritis, unspecified knee
CPT/HCPCS: 71010; 72110; 74000; 80048; 82962; 83735; 84100; 85025; 86850; 86900; 86901; 86920; 87086; 97110; 97116; 97163; 97530; J0360; J0690; J1100; J1170; J1644; J1815; J2175; J2250; J2405; J2710; J3010; J3480; P9045